=== PATIENT | female | born 1960 | race Asian ===

== ENCOUNTER 2017-10-16 12:14 | Emergency (ER) | payer BC ==
[~2017-10-16] VITALS: Ht 162.6 cm; Wt 79.0 kg
[~2017-10-16 12:14] MED LIST: ASPI-1159 PO; ATOR10TA MT; BUTA1CAP45 MT; LOSA50TA3 MT
[2017-10-16] MEDS ORDERED: SODIUM CHLORIDE 0.9% 1,000 ML IV ONE (13:24)
[2017-10-16] MEDS ORDERED: DICYCLOMINE 10 MG/5 ML ORAL SYR PO ONE (13:30)
[2017-10-16] MEDS ORDERED: MAGNESIUM/ALUMINUM HYDROXIDE/SIMETHICONE 30ML UDC PO ONE (13:30)
[2017-10-16 14:27] LABS: BASOPHILS % 0.4 % (0.0-2.0); EOSINOPHILS % 1.3 % (0.0-5.0); HEMATOCRIT. 38.9 % (36.0-48.0); HEMOGLOBIN. 13.1 g/dL (12.0-16.0); LYMPHOCYTES % 41.6 % (20.0-50.0); MEAN CORPUSCULAR HEMOGLOBIN 31.3 pg (28.0-32.0); MEAN CORPUSCULAR VOLUME 93.2 fL (81.0-99.0); MEAN PLATELET VOLUME 7.6 fl (7.4-10.4); MONOCYTES % 6.4 % (2.0-8.0); NEUTROPHILS % 50.3 % (40.0-76.0); PLATELET 277 x1000/uL (130-400); RED BLOOD CELL COUNT 4.17 mill/uL (4.2-5.4); RED CELL DISTRIBUTION WIDTH 13.6 % (11.6-14.6)
[2017-10-16 14:34] LABS: CHLORIDE 110 mEq/L (98-107)
[2017-10-16 14:35] LABS: INR 1.1
[2017-10-16 16:58] VITALS: BP 135/64
== END 2017-10-16 17:11 | disposition home or self-care (01) ==
LOC: ER 13:39
DX: K29.00 Acute gastritis without bleeding (principal); K20.9 Esophagitis, unspecified; I10 Essential (primary) hypertension; F17.200 Nicotine dependence, unspecified, uncomplicated; Z90.49 Acquired absence of other specified parts of digestive tract; Z88.8 Allergy status to other drugs, medicaments and biological substances; Z79.82 Long term (current) use of aspirin
CPT/HCPCS: 36415; 71045; 80053; 83690; 83880; 84484; 85025; 85610; 93005; 96360; 96361; 99285; J7030

== ENCOUNTER 2018-02-08 17:03 | Emergency (ER) | payer BC ==
[~2018-02-08] VITALS: Ht 162.6 cm; Wt 83.0 kg
[2018-02-08 18:08] LABS: CLARITY URINE CLEAR (CLEAR); COLOR URINE YELLOW (YELLOW); KETONES URINE NEGATIVE (NEGATIVE); LEUKOCYTE ESTERASE URINE NEGATIVE (NEGATIVE); NITRITE URINE NEGATIVE (NEGATIVE); OCCULT BLOOD URINE NEGATIVE (NEGATIVE); PROTEIN URINE NEGATIVE (NEGATIVE); SPECIFIC GRAVITY URINE 1.004 (1.005-1.030); UROBILINOGEN URINE 0.2 E.U./dL (0.2-1.0)
[2018-02-08 19:21] LABS: BASOPHILS % 0.9 % (0.0-2.0); EOSINOPHILS % 1.2 % (0.0-5.0); HEMATOCRIT. 42.9 % (36.0-48.0); HEMOGLOBIN. 14.5 g/dL (12.0-16.0); LYMPHOCYTES % 43.1 % (20.0-50.0); MEAN CORPUSCULAR HEMOGLOBIN 31.7 pg (28.0-32.0); MEAN CORPUSCULAR VOLUME 93.6 fL (81.0-99.0); MEAN PLATELET VOLUME 8.3 fl (7.4-10.4); MONOCYTES % 5.6 % (2.0-8.0); NEUTROPHILS % 49.2 % (40.0-76.0); PLATELET 257 x1000/uL (130-400); RED BLOOD CELL COUNT 4.59 mill/uL (4.2-5.4); RED CELL DISTRIBUTION WIDTH 12.9 % (11.6-14.6)
[2018-02-08 19:31] LABS: CHLORIDE 107 mEq/L (98-107)
[2018-02-08] MEDS ORDERED: KETOROLAC 30MG/ML VIAL IV ONE (21:30)
[2018-02-08 23:55] VITALS: BP 154/76
== END 2018-02-08 23:58 | disposition home or self-care (01) ==
LOC: ER 17:03
DX: R07.89 Other chest pain (principal); R11.0 Nausea; R51 Headache; E78.00 Pure hypercholesterolemia, unspecified; I10 Essential (primary) hypertension; K21.9 Gastro-esophageal reflux disease without esophagitis; F17.200 Nicotine dependence, unspecified, uncomplicated; Z90.49 Acquired absence of other specified parts of digestive tract; Z88.8 Allergy status to other drugs, medicaments and biological substances; Z79.82 Long term (current) use of aspirin
CPT/HCPCS: 36415; 71045; 80053; 81003; 83605; 83690; 83880; 84484; 85025; 85379; 93005; 96374; 99285; J1885

== ENCOUNTER 2019-11-03 19:29 | Inpatient (IN) | payer BC ==
[~2019-11-03] VITALS: Ht 162.6 cm; Wt 84.4 kg
[~2019-11-03 19:29] MED LIST changes: -ASPI-1159 PO; +ASPI-1497 PO
[2019-11-03] MEDS ORDERED: NITROGLYCERIN 0.4MG TABLET SL SL PRN ×2 (20:00→21:00)
[2019-11-03] MEDS ORDERED: ASPIRIN 81MG TABLET PO ONE (20:00)
[2019-11-03 20:23] LABS: BASOPHILS % 0.7 % (0.0-2.0); EOSINOPHILS % 1.3 % (0.0-5.0); HEMATOCRIT. 46.4 % (36.0-48.0); HEMOGLOBIN. 15.5 g/dL (12.0-16.0); LYMPHOCYTES % 44.3 % (20.0-50.0); MEAN CORPUSCULAR HEMOGLOBIN 30.8 pg (28.0-32.0); MEAN CORPUSCULAR VOLUME 92.2 fL (81.0-99.0); MEAN PLATELET VOLUME 8.3 fl (7.4-10.4); MONOCYTES % 5.6 % (2.0-8.0); NEUTROPHILS % 48.1 % (40.0-76.0); PLATELET 284 x1000/uL (130-400); RED BLOOD CELL COUNT 5.04 mill/uL (4.2-5.4); RED CELL DISTRIBUTION WIDTH 13.4 % (11.6-14.6)
[2019-11-03 20:26] LABS: CHLORIDE 109 mEq/L (98-107)
[2019-11-03 20:32] LABS: D-DIMER 0.23 mg/L FEU (<0.50); PARTIAL THROMBOPLASTIN TIME 29.3 sec (23.4-31.0)
[2019-11-03] MEDS ORDERED: SODIUM CHLORIDE 0.9% 1,000 ML IV ONE (20:40)
[2019-11-03] MEDS ORDERED: CEFTRIAXONE 1 G PREMIX 50 ML IV ONE (20:45)
[2019-11-03] MEDS ORDERED: AZITHROMYCIN 500 MG in DEXT 5% WATER 250 ML IV ONE (20:45)
[2019-11-03] MEDS ORDERED: DOCUSATE SODIUM 100MG CAPSULE PO PRN (21:00)
[2019-11-03] MEDS ORDERED: KETOROLAC 15MG/ML VIAL IV PRN (21:00)
[2019-11-03] MEDS ORDERED: ZOLPIDEM TARTRATE 5MG TABLET PO PRN (21:00)
[2019-11-03] MEDS ORDERED: BUTALBITAL/ACETAMINOPHEN/CAFFEINE 50/325/40MG TABLET PO PRN (21:00)
[2019-11-03] MEDS ORDERED: MAGNESIUM/ALUMINUM HYDROXIDE/SIMETHICONE 30ML UDC PO PRN (21:00)
[2019-11-03] MEDS ORDERED: ACETAMINOPHEN 325MG TABLET PO PRN ×2 (21:00)
[2019-11-03] MEDS ORDERED: GUAIFENESIN 200MG/10ML SUGAR FREE UDC PO PRN (21:00)
[2019-11-03] MEDS ORDERED: LORAZEPAM 0.5MG TABLET PO PRN (21:00)
[2019-11-03] MEDS ORDERED: NA PHOS,M-B/NA PHOS,DI-BA ENEMA 118ML PR PRN (21:00)
[2019-11-03] MEDS ORDERED: IPRATROPIUM/ALBUTEROL 0.5-3(2.5)MG/3ML NEB ORI PRN (21:00)
[2019-11-03] MEDS ORDERED: ONDANSETRON HCL 4MG/2ML INJ IV PRN (21:00)
[2019-11-03] MEDS ORDERED: CLONIDINE 0.1MG TABLET PO PRN (21:00)
[2019-11-03] MEDS: GUAIFENESIN/DM 600MG/30MG ER TAB 12HR PO SCH (22:08)
[2019-11-03] MEDS: ATORVASTATIN CALCIUM 10MG TABLET PO SCH (22:08)
[2019-11-03] MEDS: METOPROLOL TARTRATE 25MG TABLET PO SCH (22:08)
[2019-11-03] MEDS: ASCORBIC ACID 500 MG TABLET PO SCH (22:09)
[2019-11-03] MEDS: FAMOTIDINE 20MG TABLET PO SCH (22:09)
[2019-11-03] MEDS: LISINOPRIL 20MG TABLET PO SCH (22:46)
[2019-11-03] MEDS: ENOXAPARIN 40MG/0.4ML SYR SUBCUT SCH (22:47)
[2019-11-03 22:58] LABS: CLARITY URINE CLEAR (CLEAR); COLOR URINE YELLOW (YELLOW); KETONES URINE NEGATIVE (NEGATIVE); LEUKOCYTE ESTERASE URINE NEGATIVE (NEGATIVE); NITRITE URINE NEGATIVE (NEGATIVE); OCCULT BLOOD URINE NEGATIVE (NEGATIVE); PROTEIN URINE NEGATIVE (NEGATIVE); SPECIFIC GRAVITY URINE 1.022 (1.005-1.030); UROBILINOGEN URINE 0.2 E.U./dL (0.2-1.0)
[2019-11-03 23:22] LABS: *AMPHETAMINES SCREEN URINE NEGATIVE (NEGATIVE); *BARBITURATES SCREEN URINE NEGATIVE (NEGATIVE); *BENZODIAZEPINES SCREEN URINE PRESUMTIVE POSITIVE (NEGATIVE); *COCAINE SCREEN URINE NEGATIVE (NEGATIVE); METHADONE URINE SCREEN NEGATIVE (NEGATIVE); OPIATES URINE SCREEN NEGATIVE (NEGATIVE)
[2019-11-03 23:23] LABS: CANNABINOID URINE SCREEN NEGATIVE (NEGATIVE); PHENCYCLIDINE URINE SCREEN NEGATIVE (NEGATIVE)
[2019-11-04 01:24] LABS: CREATINE KINASE 92 IU/L (26-192)
[2019-11-04 01:25] LABS: CREATINE KINASE MB FRACTION < 1.0 ng/mL (0.5-3.6)
[2019-11-04 06:08] LABS: CREATINE KINASE 96 IU/L (26-192)
[2019-11-04] MEDS: METOPROLOL TARTRATE 25MG TABLET PO SCH ×3 (09:00→21:47)
[2019-11-04] MEDS: ASPIRIN 81MG EC TABLET PO SCH (09:29)
[2019-11-04] MEDS: GUAIFENESIN/DM 600MG/30MG ER TAB 12HR PO SCH ×2 (09:31→21:26)
[2019-11-04] MEDS: FAMOTIDINE 20MG TABLET PO SCH ×2 (09:37→21:26)
[2019-11-04] MEDS: ASCORBIC ACID 500 MG TABLET PO SCH ×2 (09:37→21:26)
[2019-11-04] MEDS: ZINC SULFATE 220 MG ( 50 ) CAPSULE PO SCH (09:37)
[2019-11-04] MEDS: LISINOPRIL 20MG TABLET PO SCH ×3 (09:38→21:46)
[2019-11-04 18:00] VITALS: BP 151/59
[2019-11-04] MEDS ORDERED: ALBUTEROL 6.7GM HFA INHALER ORI SCH (18:00)
[2019-11-04 20:00] VITALS: BP 151/58
[2019-11-04 20:47] VITALS: BP 99/59
[2019-11-04] MEDS ORDERED: GUAIFENESIN 600MG ER TABLET PO SCH (21:00)
[2019-11-04] MEDS: CEFTRIAXONE 1,000 MG in DEXTROSE 5% WATER 50 ML IV SCH (21:24)
[2019-11-04] MEDS: ATORVASTATIN CALCIUM 10MG TABLET PO SCH (21:30)
[2019-11-04] MEDS: ENOXAPARIN 40MG/0.4ML SYR SUBCUT SCH (21:31)
[2019-11-04] MEDS: TRAMADOL 50MG TABLET PO PRN (21:43)
[2019-11-04] MEDS ORDERED: AZITHROMYCIN 500 MG in DEXT 5% WATER 250 ML IV SCH (22:00)
[2019-11-04] MEDS ORDERED: CEFTRIAXONE 1,000 MG in DEXTROSE 5% WATER 50 ML IV SCH (22:00)
[2019-11-04] MEDS: AZITHROMYCIN 500 MG in DEXT 5% WATER 250 ML IV SCH (22:07)
[2019-11-04] MEDS ORDERED: AMLO5TAB88 PO (23:16)
[2019-11-04] MEDS ORDERED: ESOM20TA PO (23:16)
[2019-11-04] MEDS ORDERED: DIAZ5TAB4 PO (23:16)
[2019-11-05] VITALS (7 sets, daily range): BP systolic 125–157; BP diastolic 43–92
[2019-11-05] MEDS: METOPROLOL TARTRATE 25MG TABLET PO SCH (09:00)
[2019-11-05] MEDS: ASPIRIN 81MG EC TABLET PO SCH (09:12)
[2019-11-05] MEDS: GUAIFENESIN/DM 600MG/30MG ER TAB 12HR PO SCH ×2 (09:12→21:22)
[2019-11-05] MEDS: ZINC SULFATE 220 MG ( 50 ) CAPSULE PO SCH (09:12)
[2019-11-05] MEDS: ASCORBIC ACID 500 MG TABLET PO SCH ×2 (09:13→21:22)
[2019-11-05] MEDS: LISINOPRIL 20MG TABLET PO SCH (09:13)
[2019-11-05] MEDS: FAMOTIDINE 20MG TABLET PO SCH ×2 (09:42→21:22)
[2019-11-05] MEDS: AMLODIPINE 2.5MG TABLET PO SCH ×2 (12:45→21:22)
[2019-11-05] MEDS: TRAMADOL 50MG TABLET PO PRN (13:34)
[2019-11-05] MEDS ORDERED: IPRATROPIUM/ALBUTEROL 0.5-3(2.5)MG/3ML NEB HHN PRN (16:30)
[2019-11-05] MEDS: CEFTRIAXONE 1,000 MG in DEXTROSE 5% WATER 50 ML IV SCH (17:31)
[2019-11-05] MEDS: AZITHROMYCIN 500 MG in DEXT 5% WATER 250 ML IV SCH (17:56)
[2019-11-05] MEDS ORDERED: ATORVASTATIN CALCIUM 40MG TABLET PO SCH (21:00)
[2019-11-05] MEDS: ENOXAPARIN 40MG/0.4ML SYR SUBCUT SCH (21:24)
[2019-11-06] VITALS: BP 147/61
[2019-11-06 04:00] VITALS: BP 156/70
[2019-11-06 06:53] LABS: BASOPHILS % 0.8 % (0.0-2.0); EOSINOPHILS % 2.3 % (0.0-5.0); HEMOGLOBIN. 13.7 g/dL (12.0-16.0); LYMPHOCYTES % 49.6 % (20.0-50.0); MEAN CORPUSCULAR VOLUME 92.4 fL (81.0-99.0); MEAN PLATELET VOLUME 8.8 fl (7.4-10.4); MONOCYTES % 5.5 % (2.0-8.0); NEUTROPHILS % 41.8 % (40.0-76.0); PLATELET 257 x1000/uL (130-400); RED BLOOD CELL COUNT 4.43 mill/uL (4.2-5.4)
[2019-11-06 07:03] LABS: CHLORIDE 110 mEq/L (98-107)
[2019-11-06 07:15] LABS: TOTAL IRON BINDING CAPACITY 272 ug/dL (250-450)
[2019-11-06 07:17] LABS: CREATINE KINASE 69 IU/L (26-192)
[2019-11-06 07:39] LABS: VITAMIN B12 SERUM 448 pg/mL (211-911)
[2019-11-06 08:00] VITALS: BP_SYST 123; BP_SYST 129; BP_DIAS 64; BP_DIAS 67
[2019-11-06] MEDS: ASPIRIN 81MG EC TABLET PO SCH (09:58)
[2019-11-06] MEDS: ZINC SULFATE 220 MG ( 50 ) CAPSULE PO SCH (09:58)
[2019-11-06] MEDS: ASCORBIC ACID 500 MG TABLET PO SCH (09:58)
[2019-11-06] MEDS: AMLODIPINE 2.5MG TABLET PO SCH (09:58)
[2019-11-06] MEDS: FAMOTIDINE 20MG TABLET PO SCH (09:58)
[2019-11-06] MEDS: GUAIFENESIN/DM 600MG/30MG ER TAB 12HR PO SCH (09:58)
[2019-11-06 12:00] VITALS: BP 129/64
[2019-11-06 13:48] VITALS: BP 129/64
[2019-11-06] MEDS: TRAMADOL 50MG TABLET PO PRN (13:48)
[2019-11-06] MEDS ORDERED: AZITHROMYCIN 500 MG TABLET PO SCH (17:00)
[2020-01-06] MEDS ORDERED: ATOR20TA65 PO (06:52)
[2020-01-06] MEDS ORDERED: HYDR-4001 PO (06:57)
[2020-01-06] MEDS ORDERED: NAPR500T7 PO (06:57)
[2020-01-06] MEDS ORDERED: ESTROGEN GEL TOP (06:57)
[2020-01-06] MEDS ORDERED: PROG100C10 PO (06:57)
== END 2019-11-06 16:45 | disposition home or self-care (01) | DRG 193 ==
LOC: ER 19:29 → MICUSO 22:13 → 7WST 11-04 15:39 → 5WST 11-04 23:45
PROVIDERS: ADMIT Internal Medicine; ATTEND Internal Medicine
DX: J18.9 Pneumonia, unspecified organism (principal); J96.01 Acute respiratory failure with hypoxia; A41.9 Sepsis, unspecified organism; M94.0 Chondrocostal junction syndrome [Tietze]; I10 Essential (primary) hypertension; E78.00 Pure hypercholesterolemia, unspecified; E66.9 Obesity, unspecified; R19.7 Diarrhea, unspecified; E78.5 Hyperlipidemia, unspecified; K21.9 Gastro-esophageal reflux disease without esophagitis; N83.209 Unspecified ovarian cyst, unspecified side; Z20.828 Contact with and (suspected) exposure to other viral communicable diseases; F17.210 Nicotine dependence, cigarettes, uncomplicated; G43.909 Migraine, unspecified, not intractable, without status migrainosus; Z79.899 Other long term (current) drug therapy; Z88.8 Allergy status to other drugs, medicaments and biological substances; Z79.82 Long term (current) use of aspirin; Z68.31 Body mass index [BMI] 31.0-31.9, adult
CPT/HCPCS: 36415; 71045; 80048; 80053; 80061; 80305; 81003; 82550; 82553; 82607; 83036; 83540; 83550; 83605; 83735; 83880; 84145; 84439; 84443; 84481; 84484; 85025; 85379; 87635; 93005; 93306; 93970; 96365; 99285; J0456; J0696; J1650; J1885; J7030; J7060; U0003-CS

== ENCOUNTER 2020-01-25 09:44 | Emergency (ER) | payer BC ==
[~2020-01-25] VITALS: Ht 162.6 cm; Wt 65.0 kg
[~2020-01-25 09:44] MED LIST changes: +AMLO5TAB88 PO; -ASPI-1497 PO; -ATOR10TA MT; +ATOR20TA65 PO; -BUTA1CAP45 MT; +DIAZ5TAB4 PO; +ESOM20TA PO; +HYDR-4001 PO; -LOSA50TA3 MT; +NAPR500T7 PO; +PROG100C10 PO
[2020-01-25] MEDS ORDERED: KETOROLAC 30MG/ML VIAL IV STA (10:48)
[2020-01-25] MEDS ORDERED: SODIUM CHLORIDE 0.9% 1,000 ML IV ONE (11:00)
[2020-01-25 11:31] LABS: BASOPHILS % 0.7 % (0.0-2.0); EOSINOPHILS % 1.2 % (0.0-5.0); HEMATOCRIT. 42.4 % (36.0-48.0); HEMOGLOBIN. 14.3 g/dL (12.0-16.0); LYMPHOCYTES % 28.1 % (20.0-50.0); MEAN CORPUSCULAR HEMOGLOBIN 31.2 pg (28.0-32.0); MEAN CORPUSCULAR VOLUME 92.6 fL (81.0-99.0); MEAN PLATELET VOLUME 8.4 fl (7.4-10.4); MONOCYTES % 5.1 % (2.0-8.0); NEUTROPHILS % 64.9 % (40.0-76.0); PLATELET 260 x1000/uL (130-400); RED BLOOD CELL COUNT 4.58 mill/uL (4.2-5.4); RED CELL DISTRIBUTION WIDTH 13.2 % (11.6-14.6)
[2020-01-25 11:33] LABS: CHLORIDE 110 mEq/L (98-107)
[2020-01-25 11:37] LABS: ETHANOL BLOOD < 10 mg/dL
[2020-01-25 12:49] LABS: CLARITY URINE CLEAR (CLEAR); COLOR URINE YELLOW (YELLOW); KETONES URINE NEGATIVE (NEGATIVE); LEUKOCYTE ESTERASE URINE NEGATIVE (NEGATIVE); NITRITE URINE NEGATIVE (NEGATIVE); OCCULT BLOOD URINE NEGATIVE (NEGATIVE); PROTEIN URINE NEGATIVE (NEGATIVE); SPECIFIC GRAVITY URINE 1.031 (1.005-1.030)
[2020-01-25 13:00] LABS: *AMPHETAMINES SCREEN URINE NEGATIVE (NEGATIVE); *BARBITURATES SCREEN URINE NEGATIVE (NEGATIVE); *BENZODIAZEPINES SCREEN URINE NEGATIVE (NEGATIVE)
[2020-01-25 13:01] LABS: *COCAINE SCREEN URINE NEGATIVE (NEGATIVE); CANNABINOID URINE SCREEN NEGATIVE (NEGATIVE); METHADONE URINE SCREEN NEGATIVE (NEGATIVE); OPIATES URINE SCREEN NEGATIVE (NEGATIVE); PHENCYCLIDINE URINE SCREEN NEGATIVE (NEGATIVE)
[2020-01-25] MEDS ORDERED: DICYCLOMINE 10 MG/5 ML ORAL SYR PO STA (13:38)
[2020-01-25] MEDS ORDERED: MAGNESIUM/ALUMINUM HYDROXIDE/SIMETHICONE 30ML UDC PO STA (13:38)
[2020-01-25] MEDS ORDERED: VISCOUS LIDOCAINE 2% 15 ML UDC PO STA (13:38)
[2020-01-25] MEDS ORDERED: PANTOPRAZOLE 40MG DR TABLET PO ONE (15:15)
[2020-01-25 15:22] VITALS: BP 156/68
== END 2020-01-25 15:25 | disposition home or self-care (01) ==
LOC: ER 09:44
DX: R07.89 Other chest pain (principal); R06.02 Shortness of breath; R53.1 Weakness; Z79.899 Other long term (current) drug therapy
CPT/HCPCS: 36415; 71045; 80053; 80305; 80320; 81003; 84484; 85025; 93005; 96361; 96374; 99285; J1885; J7030; G0480